=== PATIENT | female | born 1990 | race Caucasian/White ===

== ENCOUNTER 2021-02-01 00:41 | Emergency (ER) | payer BC ==
[~2021-02-01 00:41] MED LIST: COLACE 100MG C100 MG PO; IBUPROFEN600 MG PO; LORTAB 5-325 M1 EACH PO
[2021-02-01 02:29] LABS: HEMOGLOBIN 15.3 gm/dl (12.3-15.3); RED BLOOD COUNT 4.95 M/UL (4.00-5.10); WHITE BLOOD COUNT 9.5 K/UL (4.5-11.0)
[2021-02-01 02:50] LABS: BUN/CREATININE RATIO 11 (0-10)
[2021-02-01] MEDS ORDERED: LODINE CAP 300300 MG PO (04:01)
[2021-02-01] MEDS ORDERED: OMNICEF 300 MG300 MG PO (04:01)
[2021-02-01] MEDS ORDERED: ZOFRAN ODT 4 MG4 MG PO (04:01)
[2021-02-01] MEDS ORDERED: BENTYL 20MG TAB20 MG PO (04:01)
== END 2021-02-01 04:18 | disposition home or self-care (01) ==
LOC: ER1 00:41
PROVIDERS: Physician Assistant
DX: N83.201 Unspecified ovarian cyst, right side (principal); N39.0 Urinary tract infection, site not specified
CPT/HCPCS: 80053; 81001; 82150; 83690; 84703; 85025; 87086; 96374; 96375; 96376; 99284; J0696; J1885; J2270; J2405; Q9967